=== PATIENT | male | born 1955 | race Caucasian/White ===

== ENCOUNTER 2017-04-02 07:46 | Day surgery (SDC) | payer OTHER ==
[2017-04-02] MEDS ORDERED: LACTATED RINGERS 1,000 ML IV ONE (08:12)
[2017-04-02] MEDS ORDERED: MIDAZOLAM 2 MG/2 ML VIAL IVP ONE (08:49)
[2017-04-02] MEDS ORDERED: fentaNYL 100 MCG/2 ML VIAL IVP ONE (08:49)
== END 2017-04-02 07:47 | disposition home or self-care (01) ==
PROC: 0DJD8ZZ Inspection of Lower Intestinal Tract, Via Natural or Artificial Opening Endoscopic (ICD-10-PCS; principal; 2017-04-02 09:00)
DX: Z12.11 Encounter for screening for malignant neoplasm of colon (principal); F17.200 Nicotine dependence, unspecified, uncomplicated; J45.909 Unspecified asthma, uncomplicated
CPT/HCPCS: 45378; J7120